=== PATIENT | female | born 1965 | race Caucasian/White ===

== ENCOUNTER 2016-11-23 09:42 | Emergency (ER) | payer BC, OTHER ==
[2016-11-23 09:48] VITALS: BP 139/93; PULSE 73; TEMP 98.3; BMI 28.3
[2016-11-23] MEDS ORDERED: ONDANSETRON *ODT* 4 MG TABLET ONE (10:21)
[2016-11-23] MEDS ORDERED: ONDANSETRON *ODT* 4 MG TABLET SL ONE (10:23)
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
== END 2016-11-23 11:25 | disposition home or self-care (01) ==
LOC: JERFT 09:42
DX: S09.8XXA Other specified injuries of head, initial encounter (principal); V86.91XA Unspecified occupant of ambulance or fire engine injured in nontraffic accident, initial encounter; Y92.488 Other paved roadways as the place of occurrence of the external cause; Y93.89 Activity, other specified; Y99.0 Civilian activity done for income or pay
CPT/HCPCS: 99281-25

== ENCOUNTER 2016-11-24 18:44 | Emergency (ER) | payer OTHER ==
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
[2016-11-24 18:50] VITALS: BP 145/61; PULSE 66; TEMP 98; BMI 28.3
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
== END 2016-11-24 20:46 | disposition home or self-care (01) ==
LOC: JERFT 18:44
DX: S09.8XXD Other specified injuries of head, subsequent encounter (principal); V86 Occupant of special all-terrain or other off-road motor vehicle, injured in transport accident; Y92.488 Other paved roadways as the place of occurrence of the external cause; Y93.89 Activity, other specified; Y99.0 Civilian activity done for income or pay
CPT/HCPCS: 70450-TC; 99281-25